=== PATIENT | male | born 1980 | race Caucasian/White ===

== ENCOUNTER 2017-12-12 11:29 | Emergency (ER) | payer BC, OTHER ==
[~2017-12-12] VITALS: Ht 177.8 cm; Wt 90.7 kg
[~2017-12-12 11:29] MED LIST: FEXO1TAB8 PO
--- NOTE | 2017-12-12 12:35 | NUR ---
mse completed, aci/wortk note given, cruches dispensed, demonstrated proper use.
[2017-12-12 12:37] VITALS: BP 142/70
== END 2017-12-12 12:38 | disposition home or self-care (01) ==
LOC: ER 11:32
DX: M25.561 Pain in right knee (principal); F17.200 Nicotine dependence, unspecified, uncomplicated
CPT/HCPCS: A4663

== ENCOUNTER 2019-12-27 13:23 | Emergency (ER) | payer BC, OTHER ==
[~2019-12-27] VITALS: Ht 177.8 cm; Wt 95.3 kg
--- NOTE | 2019-12-27 13:28 | NUR ---
Dr. Rivera at bedside for MSE
[2019-12-27] MEDS ORDERED: KETOROLAC TROMETHAMINE 15 MG INJ ONE (13:41)
[2019-12-27] MEDS ORDERED: KETOROLAC TROMETHAMINE 15 MG INJ IM ONE (13:45)
--- NOTE | 2019-12-27 13:55 | NUR ---
Patient taken to CT scan via w/c
--- NOTE | 2019-12-27 14:05 | NUR ---
Patient back from CT scan
--- NOTE | 2019-12-27 15:08 | NUR ---
Patient discharged to home in stable condition. Written and verbal after care instructions given. Patient verbalizes understanding of instructions. Stressed follow up or return to ER for worsening s/s. Patient ambulated with steady gait. Work note provided. NAD noted
[2019-12-27 15:14] VITALS: BP 126/81
== END 2019-12-27 15:08 | disposition home or self-care (01) ==
LOC: ER 13:31
DX: M54.42 Lumbago with sciatica, left side (principal); M48.07 Spinal stenosis, lumbosacral region; M48.46 Fatigue fracture of vertebra, lumbar region; K57.90 Diverticulosis of intestine, part unspecified, without perforation or abscess without bleeding
CPT/HCPCS: 72131; 96372; 99284; J1885; A4663